=== PATIENT | female | born 1960 | race Caucasian/White ===

== ENCOUNTER → 2016-10-11 | Outpatient (CLI) | payer MEDICARE, BC ==
[~2016-10-11] MED LIST: AMBIEN 10MG10 MG PO; AZULFIDINE500 MG; BENTYL 20MG20 MG/TAB PO; LITHIUM CA150 MG/CAP PO; PERCOCET 325 MG1 TA2 PO; PREDNISONE1 MG PO; PRILOSEC 20MG20 MG; PROBIOTIC FORMU1 CAP PO; PROTONIX 40MG T40 MG PO; SUCRALFATE PO; SYNTHROID 0.0.025 MG PO; VALIUM 10MG10 MG/TAB PO; ZOFRAN 4MG T4 MG/TAB PO; ZOLOFT 100MG100 MG PO; ZYPREXA20 MG PO
== END ==
LOC: BHSO 09:43
DX: F25.0 Schizoaffective disorder, bipolar type (principal)

== ENCOUNTER → 2016-12-09 | Outpatient (CLI) | payer MEDICARE, BC | LOC: BHSO 09:49 | DX: F25.0 Schizoaffective disorder, bipolar type (principal) ==

== ENCOUNTER → 2017-01-14 | Outpatient (CLI) | payer MEDICARE, BC | LOC: BHSO 09:32 | DX: F25.0 Schizoaffective disorder, bipolar type (principal) ==

== ENCOUNTER → 2017-03-17 | Outpatient (CLI) | payer MEDICARE, BC | LOC: BHSO 09:52 | DX: F25.0 Schizoaffective disorder, bipolar type (principal) ==

== ENCOUNTER → 2017-05-13 | Outpatient (CLI) | payer MEDICARE, BC | LOC: BHSO 09:53 | DX: F25.0 Schizoaffective disorder, bipolar type (principal) ==

== ENCOUNTER → 2017-07-15 | Outpatient (CLI) | payer MEDICARE, BC | LOC: BHSO 10:11 | DX: F25.0 Schizoaffective disorder, bipolar type (principal) ==

== ENCOUNTER → 2017-09-15 | Outpatient (CLI) | payer MEDICARE, BC | LOC: BHSO 10:39 | DX: F25.0 Schizoaffective disorder, bipolar type (principal) | CPT/HCPCS: G0463 ==

== ENCOUNTER → 2017-11-18 | Outpatient (CLI) | payer MEDICARE, BC | LOC: BHSO 12:58 | DX: F25.0 Schizoaffective disorder, bipolar type (principal) | CPT/HCPCS: G0463 ==

== ENCOUNTER → 2017-12-03 | Outpatient (CLI) | payer MEDICARE, BC | LOC: BHSO 12:59 | DX: F25.0 Schizoaffective disorder, bipolar type (principal) | CPT/HCPCS: G0463 ==

== ENCOUNTER → 2018-01-07 | Outpatient (CLI) | payer MEDICARE, BC | LOC: BHSO 10:55 | DX: F25.0 Schizoaffective disorder, bipolar type (principal) | CPT/HCPCS: G0463 ==

== ENCOUNTER → 2018-02-18 | Outpatient (CLI) | payer MEDICARE, BC | LOC: BHSO 13:31 | DX: F25.0 Schizoaffective disorder, bipolar type (principal) | CPT/HCPCS: G0463 ==

== ENCOUNTER → 2018-04-15 | Outpatient (CLI) | payer MEDICARE, BC | LOC: BHSO 13:38 | DX: F25.0 Schizoaffective disorder, bipolar type (principal) | CPT/HCPCS: G0463 ==

== ENCOUNTER → 2018-06-17 | Outpatient (CLI) | payer MEDICARE, BC | LOC: BHSO 13:33 | DX: F25.0 Schizoaffective disorder, bipolar type (principal) | CPT/HCPCS: G0463 ==

== ENCOUNTER 2018-07-08 16:29 | Inpatient (IN) | payer MEDICARE, BC ==
[2018-07-08] VITALS (117 sets, daily range): O2SAT 90–100
[~2018-07-08] VITALS: Ht 177.8 cm; Wt 96.0 kg
[~2018-07-08 16:29] MED LIST changes: -SYNTHROID 0.0.025 MG PO; +SYNTHROID0.088 MG/T PO
[2018-07-08 16:58] LABS: BASO # 0.1 (0.0-0.2); EOS # 0.3 (0.0-0.7); EOS % 2.8 % (0-4.0); GRAN # 6.6 (1.4-6.5); GRAN % 61.1 % (42.2-75.2); HEMATOCRIT 45.5 % (37.0-47.0); HEMOGLOBIN 14.6 g/dl (12.5-16.0); LYMPH # 2.9 (1.2-3.4); LYMPH % 27.2 % (20.0-51.0); MEAN CELL VOLUME 88 fl (80.0-100.0); MEAN CORPUSCULAR HEMOGLOBIN 28 pg (27.0-31.0); MEAN CORPUSCULAR HGB CONC 32 g/dl (33.0-37.0); MEAN PLATELET VOLUME 11.8 fl (7.4-10.4); MONO # 0.8 (0.1-0.6); MONO % 7.6 % (1.7-9.3); PLATELET COUNT 257 K/mm3 (130-400); REDCELL DISTRIBUTION WIDTH-CV 13.2 % (11.5-14.5)
[2018-07-08 17:08] LABS: ALANINE AMINOTRANSFERASE 43 U/L (9-52); ALBUMIN 4.5 gm/dL (3.5-5.0); ALKALINE PHOSPHATASE 61 U/L (50-136); ANION GAP 8 mmol/L (7-16); AST,SGOT 42 U/L (15-37); BILIRUBIN,TOTAL 0.5 mg/dL (0.0-1.0); BLOOD UREA NITROGEN 8 mg/dL (7-17); C-REACTIVE PROTEIN 0.6 mg/dL (0.0-0.9); CALCIUM 9.8 mg/dL (8.4-10.2); CARBON DIOXIDE 27 mmol/L (22-30); CHLORIDE 105 mmol/L (98-107); CREATININE, serum 1.03 mg/dL (0.52-1.25); GLUCOSE 90 mg/dL (74-106); SODIUM 140 mmol/L (137-145)
[2018-07-08 17:21] LABS: TROPONIN-I < 0.012 ng/mL (0.000-0.034)
[2018-07-08 17:22] LABS: PROLACTIN 8.4 ng/mL (3.0-18.6)
[2018-07-08] MEDS ORDERED: KEPPRA 500MG500 MG PO (18:06)
[2018-07-08] MEDS ORDERED: PAMELOR 25MG25 MG PO (18:51)
[2018-07-08] MEDS ORDERED: LITHIUM 60600 MG/CAP PO (18:52)
[2018-07-08] MEDS ORDERED: PROTONIX 40MG T40 MG PO (18:54)
[2018-07-08] MEDS ORDERED: SEROQUEL 200MG200 MG PO (18:55)
[2018-07-08] MEDS ORDERED: CARAFATE 1GM1 G PO (18:56)
[2018-07-08] MEDS ORDERED: CYMBALTA 60MG60 MG PO (18:57)
[2018-07-08] MEDS ORDERED: COGENTIN 1MG1 MG/TAB PO (22:10)
[2018-07-09] VITALS (439 sets, daily range): BP systolic 89–119; BP diastolic 42–84; PULSE 62–105; TEMP 97.8–98.6; O2SAT 74–100
[2018-07-09 05:38] LABS: BASO # 0.1 (0.0-0.2); EOS # 0.2 (0.0-0.7); GRAN # 4.3 (1.4-6.5); HEMATOCRIT 38.3 % (37.0-47.0); LYMPH # 2.8 (1.2-3.4); LYMPH % 34.1 % (20.0-51.0); MEAN CELL VOLUME 87 fl (80.0-100.0); MEAN CORPUSCULAR HEMOGLOBIN 28 pg (27.0-31.0); MEAN CORPUSCULAR HGB CONC 32 g/dl (33.0-37.0); MEAN PLATELET VOLUME 11.5 fl (7.4-10.4); MONO # 0.7 (0.1-0.6); MONO % 8.5 % (1.7-9.3); PLATELET COUNT 208 K/mm3 (130-400); REDCELL DISTRIBUTION WIDTH-CV 13.2 % (11.5-14.5)
[2018-07-09 05:39] LABS: HEMOGLOBIN 12.3 g/dl (12.5-16.0)
[2018-07-09 05:50] LABS: CALCIUM 9.4 mg/dL (8.4-10.2); CREATININE, serum 1.03 mg/dL (0.52-1.25); POTASSIUM 4.2 mmol/L (3.4-5.0)
[2018-07-09 07:08] LABS: TSH w REFLEX 0.46 uIU/mL (0.465-4.680)
[2018-07-09] MEDS ORDERED: KEPPRA1000 MG PO (11:17)
[2018-07-09 11:57] LABS: PROTHROMBIN TIME 10.9 SECONDS (9.7-12.8)
[2018-07-09 12:00] LABS: CALCIUM 9.5 mg/dL (8.4-10.2); CREATININE, serum 1.05 mg/dL (0.52-1.25); POTASSIUM 4.1 mmol/L (3.4-5.0)
[2018-07-10] VITALS (7 sets, daily range): BP systolic 82–126; BP diastolic 40–91; PULSE 72–83; TEMP 97–98.7
[2018-07-10 12:53] LABS: TRICYCLIC ANTIDEPRESS URINE NEGATIVE
[2018-07-11] VITALS (7 sets, daily range): BP systolic 90–108; BP diastolic 33–63; PULSE 73–86; TEMP 97.7–98.8
[2018-07-12 03:39] VITALS: BP 90/45; PULSE 65; TEMP 98.1
[2018-07-12 06:24] LABS: BASO # 0.1 (0.0-0.2); BASO % 0.8 % (0.0-2.0); EOS # 0.3 (0.0-0.7); EOS % 3.9 % (0-4.0); GRAN # 3.3 (1.4-6.5); HEMATOCRIT 38.6 % (37.0-47.0); HEMOGLOBIN 12.2 g/dl (12.5-16.0); LYMPH # 2.4 (1.2-3.4); LYMPH % 36.6 % (20.0-51.0); MEAN CELL VOLUME 89 fl (80.0-100.0); MEAN CORPUSCULAR HEMOGLOBIN 28 pg (27.0-31.0); MEAN CORPUSCULAR HGB CONC 32 g/dl (33.0-37.0); MEAN PLATELET VOLUME 11.7 fl (7.4-10.4); MONO # 0.6 (0.1-0.6); MONO % 9.2 % (1.7-9.3); PLATELET COUNT 210 K/mm3 (130-400); RED BLOOD COUNT 4.36 M/mm3 (4.10-5.30); REDCELL DISTRIBUTION WIDTH-CV 13.2 % (11.5-14.5)
[2018-07-12 06:38] LABS: ALBUMIN 3.4 gm/dL (3.5-5.0); BILIRUBIN,TOTAL 0.2 mg/dL (0.0-1.0); CALCIUM 9.3 mg/dL (8.4-10.2); CREATININE, serum 1.08 mg/dL (0.52-1.25); TOTAL PROTEIN 6.3 gm/dL (6.4-8.2)
[2018-07-12 07:57] VITALS: BP 101/53; PULSE 76; TEMP 97.4
[2018-07-12 11:23] VITALS: BP 117/40; PULSE 65; TEMP 98
[2018-07-12 15:07] VITALS: BP 109/46; PULSE 79; TEMP 98.1
[2018-07-12 21:45] VITALS: BP 97/49; PULSE 78; TEMP 99
[2018-07-13 00:35] VITALS: BP 98/56; PULSE 78; TEMP 98.3
[2018-07-13 04:35] VITALS: BP 92/42; PULSE 68; TEMP 97.6
[2018-07-13 08:09] VITALS: BP 115/68; PULSE 86; TEMP 98.5
[2018-07-13 11:51] VITALS: BP 111/70; PULSE 80; TEMP 98.7
[2018-07-13 16:16] VITALS: BP 119/51; PULSE 77; TEMP 98.1
[2018-07-13 20:02] VITALS: BP 123/55; PULSE 75; TEMP 98.2
[2018-07-14 00:54] VITALS: BP 100/68; PULSE 69; TEMP 97.9
[2018-07-14 03:52] VITALS: BP 98/49; PULSE 68; TEMP 98.5
[2018-07-14 07:25] VITALS: BP 104/59; PULSE 65; TEMP 97.7
[2018-07-14] MEDS ORDERED: VANCOCIN HCL1 GM IV (08:59)
[2018-07-14] MEDS ORDERED: ROCEPHIN 2GM VIAL21 IJ (08:59)
[2018-07-15 22:00] LABS: B.QUINTANA IGG <1:128 titer (<1:128); B.QUINTANA IGM <1:20 titer (<1:20); BARTONELLA HENSELAE IGG <1:128 titer (<1:128); BARTONELLA HENSELAE IGM <1:20 titer (<1:20)
[2018-07-17 17:39] LABS: Q FEVER AB IGG See Scanned Image; Q FEVER AB IGM XXX
== END 2018-07-14 12:21 | disposition home or self-care (01) | DRG 101 ==
LOC: COL.ER 16:29 → ICU 18:45 → COL.ER 18:45 → ICU 18:46 → MEDICAL 07-09 11:40 → ICU 07-09 11:41 → MEDICAL 07-09 18:06
PROVIDERS: Emergency Medicine; Hospitalist; Internal Medicine; Nurse Practitioner; Physician Assistant; Surgery
PROC: B5181ZA Fluoroscopy of Superior Vena Cava using Low Osmolar Contrast, Guidance (ICD-10-PCS; 2018-07-13)
PROC: 02HV33Z Insertion of Infusion Device into Superior Vena Cava, Percutaneous Approach (ICD-10-PCS; principal; 2018-07-13 17:30)
DX: R56.9 Unspecified convulsions (principal); I05.9 Rheumatic mitral valve disease, unspecified; E03.9 Hypothyroidism, unspecified; F20.9 Schizophrenia, unspecified; I95.9 Hypotension, unspecified; R55 Syncope and collapse; Z66 Do not resuscitate
CPT/HCPCS: 99232-AI; 99233-AI; 99239; C1751; G0378; J0690; J0696; J1644; J1650; J1953; J2060; J2250; J2405; J2704; J3010; J3370; J7030; J7050

== ENCOUNTER → 2018-08-21 | Outpatient (CLI) | payer MEDICARE, BC ==
[~2018-08-21] MED LIST changes: +CARAFATE 1GM1 G PO; +COGENTIN 1MG1 MG/TAB PO; +CYMBALTA 60MG60 MG PO; +KEPPRA 500MG500 MG PO; +KEPPRA1000 MG PO; +LITHIUM 60600 MG/CAP PO; +PAMELOR 25MG25 MG PO; +ROCEPHIN 2GM VIAL21 IJ; +SEROQUEL 200MG200 MG PO; +VANCOCIN HCL1 GM IV
== END ==
LOC: BHSO 13:13
DX: F25.0 Schizoaffective disorder, bipolar type (principal)
CPT/HCPCS: G0463

== ENCOUNTER 2018-09-21 07:36 | Outpatient (CLI) | payer MEDICARE, BC ==
[~2018-09-21] VITALS: Ht 177.8 cm; Wt 93.0 kg
[2018-09-21 08:09] LABS: HEMATOCRIT 41.5 % (37.0-47.0); HEMOGLOBIN 12.9 g/dl (12.5-16.0); MEAN CELL VOLUME 84 fl (80.0-100.0); MEAN CORPUSCULAR HEMOGLOBIN 26 pg (27.0-31.0); MEAN CORPUSCULAR HGB CONC 31 g/dl (33.0-37.0); MEAN PLATELET VOLUME 10.9 fl (7.4-10.4); PLATELET COUNT 230 K/mm3 (130-400); RED BLOOD COUNT 4.93 M/mm3 (4.10-5.30); REDCELL DISTRIBUTION WIDTH-CV 13.2 % (11.5-14.5)
[2018-09-21 08:13] LABS: PROTHROMBIN TIME 10.9 SECONDS (9.7-12.8)
[2018-09-21 08:18] LABS: CALCIUM 9.5 mg/dL (8.4-10.2); CREATININE, serum 1.14 mg/dL (0.52-1.25); POTASSIUM 4.1 mmol/L (3.4-5.0)
[2018-09-21] MEDS ORDERED: KEPPRA1000 MG PO (08:27)
[2018-09-21 08:43] VITALS: BP 111/70; PULSE 67; TEMP 98
[2018-09-21 12:15] VITALS: BP 126/62; PULSE 62; TEMP 98.4
--- NOTE | 2018-09-21 12:15 | NUR ---
Report from René Levine RN. Pt kirk JULIAN well, at bedside.
[2018-09-21 12:30] VITALS: BP 108/60; PULSE 70
[2018-09-21 12:45] VITALS: BP 105/69; PULSE 66
[2018-09-21 13:00] VITALS: BP 104/61; PULSE 61
--- NOTE | 2018-09-21 13:05 | NUR ---
Pt has ambulated and kirk PO intake s n/v. Lee CL flushed with NS.
--- NOTE | 2018-09-21 13:20 | NUR ---
Pt discharged per w/c by nurse with .
== END 2018-09-21 13:37 | disposition home or self-care (01) ==
LOC: COL.RAD 07:36
PROVIDERS: Internal Medicine Cardiovascular Disease
DX: I05.9 Rheumatic mitral valve disease, unspecified (principal)
CPT/HCPCS: G9654; J2250; J3010

== ENCOUNTER → 2018-10-02 | Outpatient (CLI) | payer MEDICARE, BC | LOC: BHSO 13:57 | DX: F25.0 Schizoaffective disorder, bipolar type (principal) | CPT/HCPCS: G0463 ==

== ENCOUNTER → 2018-11-13 | Outpatient (CLI) | payer MEDICARE, BC | LOC: BHSO 13:31 | DX: F25.0 Schizoaffective disorder, bipolar type (principal) | CPT/HCPCS: G0463 ==

== ENCOUNTER → 2018-12-17 | Outpatient (CLI) | payer MEDICARE, BC | LOC: BHSO 13:55 | DX: F25.0 Schizoaffective disorder, bipolar type (principal) | CPT/HCPCS: G0463 ==

== ENCOUNTER → 2019-03-16 | Outpatient (CLI) | payer MEDICARE, BC | LOC: BHSO 14:05 | DX: F25.0 Schizoaffective disorder, bipolar type (principal) | CPT/HCPCS: G0463 ==

== ENCOUNTER → 2019-05-13 | Outpatient (CLI) | payer MEDICARE, BC | LOC: BHSO 14:33 | DX: F25.0 Schizoaffective disorder, bipolar type (principal) | CPT/HCPCS: G0463 ==

== ENCOUNTER → 2019-08-11 | Outpatient (CLI) | payer MEDICARE, BC | LOC: BHSO 13:52 | DX: F25.0 Schizoaffective disorder, bipolar type (principal) | CPT/HCPCS: G0463 ==

== ENCOUNTER → 2020-02-10 | Outpatient (CLI) | payer MEDICARE, BC | LOC: BHSO 14:16 | DX: F25.0 Schizoaffective disorder, bipolar type (principal) | CPT/HCPCS: G0463 ==

== ENCOUNTER → 2020-05-11 | Outpatient (CLI) | payer MEDICARE, BC | LOC: BHSO 14:32 | DX: F25.0 Schizoaffective disorder, bipolar type (principal) | CPT/HCPCS: G0463 ==